=== PATIENT | male | born 1965 | race Caucasian/White ===

== ENCOUNTER 2024-09-20 09:42 | Emergency (ER) | payer BC ==
[~2024-09-20] VITALS: Ht 152.4 cm; Wt 99.7 kg
[2024-09-20] MEDS: LIDOcaine 1% W/epiNEPHrine 1:100,000 20ml vial SQ STA (10:20)
[2024-09-20] MEDS: LIDOcaine 1% 30ml preserv. free vial SQ STA (10:20)
--- NOTE | 2024-09-20 10:36 | Physician Documentation ---
History of Present Illness ~ Chief Complaint: Laceration Stated Complaint: HAND LAC Time Seen by MD: 09:50 HPI Patient is seen today with complaints of laceration to his left volar wrist while he was trying to open a box with a machete. Patient denies any numbness or tingling or decreased mobility to the left hand. Patient states this happened just prior to arrival. He has no other concern or complaint at this time. Patient denies being on a blood thinner and states he was able to control the bleeding prior to arrival while applying pressure direct pressure. Tetanus Within 5 Years: Yes Medication Reconciliation Allergies: Coded Allergies: lisinopril (Verified Allergy, Unknown, 09/20/24) Review of Systems Constitutional: Denies: chills, fever, weakness Eyes: Denies: pain, blurred vision ENT: Denies: ear pain, nose pain, throat pain, mouth pain Respiratory: Denies: cough, shortness of breath Cardiovascular: Denies: chest pain, palpitations Gastrointestinal: Denies: abdominal pain, nausea, vomiting Genitourinary: Denies: burning, dysuria Male Genitalia: Denies: penile discharge, testicular pain Neurological: Denies: headache, dizziness Musculoskeletal: Denies: pain, swelling Integumentary: Denies: rash, lesions Allergic/Immunologic: Denies: hives, itching Hematologic/Lymphatic: Denies: no symptoms reported Psychiatric: Denies: depression, anxiety Physical Exam Vital Signs: Temperature: 98.1, Source: Oral, Heart Rate: 104, Respiratory Rate: 18, BP: 173/103, Pulse Oximetry: 98, Weight: 99.700 Physical Exam General: Awake and Alert, no acute distress. HEENT: Conjunctiva pink, Sclera clear, Mucus Membranes moist. Neck: Supple without masses and tenderness. Resp: Unlabored. Lungs clear to auscultation bilaterally. Heart: Regular Rate and rhythm, normal S1 and S2 without murmur, rub or gallop. Musculoskeletal: Patient on exam does have 3 cm laceration to the volar wrist at the radiocarpal joint on the left side. There is no active bleeding on examination at 1st however there was some venous bleeding that did start when injecting lidocaine. Patient is neurovascularly intact distally. Motor function is intact distally. Patent patient has no strength or motor deficits. Extremities: No cyanosis,clubbing or edema. Procedures Laceration/Wound Repair Laceration : Procedure Note Procedure note: 5 cc of 1% lidocaine with epinephrine was used to achieve local anesthesia of the 3 cm laceration to the left volar wrist at the level of the radiocarpal joint. Patient tolerated well. Wound was copiously irrigated with normal saline and iodine. Running suture was used to approximate edges and patient tolerated well. nonstick dressing and bulky bandage applied to repair site. Progress Results/Orders Results/Orders Completed Orders - YOAN VALDIVIA Lidocaine 1% 30ml Vial (Xylocaine 1% Via (09/20/24 10:12) Lidocaine 1% W/Epi 1:100,000 (Xylocaine (09/20/24 10:03) Vital Signs 09/20/24 09:50 Temp 98.1 Pulse 104 Resp 18 B/P (MAP) 173/103 Pulse Ox 98 Medical Decision Making Findings Patient is seen today with complaints of laceration to his left volar wrist while he was trying to open a box with a machete. Patient denies any numbness or tingling or decreased mobility to the left hand. Patient states this happened just prior to arrival. He has no other concern or complaint at this time. Patient denies being on a blood thinner and states he was able to control the bleeding prior to arrival while applying pressure direct pressure. Patient did have laceration to left volar wrist repaired using running suture by myself today. Patient tolerated well. Patient will return to ED with any worsening, concerning or changing symptoms. Patient will return for suture re moval in 7-9 days. Patient voiced understanding. Departure Disposition: 01 HOME / SELF CARE / HOMELESS Impression: Primary Impression: Laceration Condition: Improved Discharge Instructions: Laceration Care, Adult, [id number] Additional Instructions: Patient did have laceration to left volar wrist repaired using running suture by myself today. Patient tolerated well. Patient will return to ED with any worsening, concerning or changing symptoms. Patient will return for suture hubert silvia in 7-9 days. Patient voiced understanding. Referrals: NO PRIMARY CARE PROVIDER (PCP) Signature Scribe Signature: No scribe Attestation: No scribe YOAN VALDIVIA September 20, 2024 10:36
[2024-09-20] MEDS: TETanus/Pertussis (Acell)/Diphther VAC/PF (Tdap-Adult) 0.5ml syringe IMVAC ONE (11:41)
[2024-09-20 11:48] VITALS: BP 132/78; PULSE 68; RESP 16; TEMP 97.7; O2SAT 98
== END 2024-09-20 11:50 | disposition home or self-care (01) ==
LOC: ER 09:43
DX: S61.512A Laceration without foreign body of left wrist, initial encounter (principal); Z88.8 Allergy status to other drugs, medicaments and biological substances; X58.XXXA Exposure to other specified factors, initial encounter; Y93.89 Activity, other specified; Y92.89 Other specified places as the place of occurrence of the external cause; Y99.8 Other external cause status
CPT/HCPCS: 12002; 90471; 90715; 99283; A6222; J7030; A6258; A6446; A6449